=== PATIENT | male | born 1950 | race Caucasian/White ===

== ENCOUNTER 2022-10-01 15:09 | Outpatient (CLI) | payer MEDICARE, SELFPAY ==
--- NOTE | 2022-10-01 15:32 | XR_ITS ---
WS: [id number] EXAMINATION: XR lumbar spine f/e only [id number] L-SPINE : 3 views REASON FOR EXAM: POSTLAMINECTOMY SYNDROME, NOT ELSEWHERE CLASSIFIED COMPARISON: None available. ORDER DATE: 10/01/2022 3:36 PM FINDINGS: The lumbar vertebral bodies and the disc spaces are unremarkable in the upper lumbar spine but milder narrowing is present at L3-4 and severe narrowing at L4-5 and L5-S1 with prominent osteophytes and s ubchondral endplate sclerotic change is also much hypertrophic arthropathy occurring in the posterior arch and facets at the L4-5 and L5-S1 levels. This may be contributing to osseous stenosis bilateral ly of the foramina at L5-S1. There is prominent aortoiliac atherosclerotic calcified plaque. In the l umbar vertebra, there is no evidence of compression deformities or spondylolisthesis. XR/XR lumbar spine f/e only [id number] IMPRESSION: There is no spondylolisthesis and minimal lumbar motion between flexion and ext ension lateral views.
== END 2022-10-01 15:10 | disposition home or self-care (01) ==
PROVIDERS: PCP Nurse Practitioner; Visit Provider Nurse Practitioner
DX: M96.1 Postlaminectomy syndrome, not elsewhere classified (principal)
CPT/HCPCS: 72120

== ENCOUNTER 2022-10-15 13:24 | Outpatient (CLI) | payer MEDICARE, BC, SELFPAY ==
--- NOTE | 2022-10-15 13:34 | MR_ITS ---
WS: [id number] MRI LUMBAR SPINE NONCONTRAST HISTORY: POSTLAMINECTOMY SYNDROME, NOT ELSEWHERE CLASSIFIED COMPARISON: Radiograph 10/01/2022 TECHNIQUE: Sagittal and axial multisequence imaging is submitted. Advanced spondylitic changes in the cervical spine. C2 anterolisthesis by 3 mm. Normal lumbar alignment with no compression fractures or marrow edema. Severe disc space narrowing and desiccation at L4-5 and L5-S1. Reactive marrow changes along the josue cent endplates at L4-5. No fractures. Conus terminates normally at L1-2 disc level. L1-L2: Small central disc protrusion and mild subarticular recess narrowing. No foraminal stenosis. L2-L3: Mild annular disc bulging. No stenosis. L3-L4: Diffuse annular disc bulging with a moderate size central disc protrusion. Central disc protru lucas extends just caudad to the disc level. Disc protrusion extends into the subarticular recess with effacement of the ventral thecal sac. Moderate central and bilateral subarticular recess stenosis. M ost significant encroachment upon the traversing L4 nerve roots. L4-L5: Marked annular disc bulging. Osteophytic ridging. Mild facet joint arthritis. Mild central wit h bilateral subarticular recess and foraminal stenosis. L5-S1: Diffuse annular disc bulging. RIGHT hemilaminectomy defect. Mild subarticular recess and tatum inal stenosis. 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 MR/MR lumbar spine wo con* [id number] IMPRESSION: 1. Moderate size central disc protrusion extends caudad to the disc level at L 3-4. Moderate central, bilateral subarticular recess and mild foraminal stenosi s. Significant disc contacting the traversing L4 nerve roots. 2. Small central disc protrusion at L1-2 with mild subarticular recess stenosi s. 3. Mild central, bilateral subarticular recess and foraminal stenosis L4-5. 4. Mild bilateral subarticular recess and foraminal stenosis at L5-S1 with a R IGHT hemilaminectomy defect. 5. Advanced degenerative disc disease at L4-5 and L5-S1.
== END 2022-10-15 13:25 | disposition home or self-care (01) ==
LOC: RAD 13:28
PROVIDERS: PCP Nurse Practitioner; Visit Provider Anesthesiology Pain Medicine
DX: M51.26 Other intervertebral disc displacement, lumbar region (principal); M48.061 Spinal stenosis, lumbar region without neurogenic claudication; M51.37 Other intervertebral disc degeneration, lumbosacral region
CPT/HCPCS: 72148